=== PATIENT | female | born 1940 | race African-American/Black ===

== ENCOUNTER 2018-06-05 15:02 | Emergency (ER) | payer OTHER ==
[~2018-06-05] VITALS: Ht 167.6 cm; Wt 95.3 kg
[2018-06-05] MEDS ORDERED: NOVOLOG100 UNIT/1 (15:23)
[2018-06-05] MEDS ORDERED: LANTUS SOL100 UNIT/1 (15:23)
[2018-06-05] MEDS ORDERED: METOPROLOL ER-1 EAC1 (15:23)
[2018-06-05] MEDS ORDERED: AVAPRO75 MG (15:24)
[2018-06-05] MEDS ORDERED: NORVASC2.5 M1 (15:24)
[2018-06-05] MEDS ORDERED: MEDROLPACK PO (18:44)
[2018-06-05] MEDS ORDERED: FLOVENT HFA12 G1 IH (18:44)
[2018-06-05] MEDS ORDERED: VENTOLIN HFA18 GM IH (18:44)
== END 2018-06-05 18:54 | disposition home or self-care (01) ==
LOC: ER 15:02
DX: J45.998 Other asthma (principal); J11.1 Influenza due to unidentified influenza virus with other respiratory manifestations

== ENCOUNTER 2020-04-18 09:45 | Inpatient (IN) | payer OTHER ==
[~2020-04-18 09:45] MED LIST: AVAPRO75 MG; FLOVENT HFA12 G1 IH; LANTUS SOL100 UNIT/1; MEDROLPACK PO; METOPROLOL ER-1 EAC1; NORVASC2.5 M1; NOVOLOG100 UNIT/1; VENTOLIN HFA18 GM IH
[2020-04-18] MEDS ORDERED: [UNRECOGNIZED DRUG - OTHER] (12:43)
[2020-04-18] MEDS ORDERED: JANUMET XR 1001 EACH (12:43)
[2020-04-18] MEDS ORDERED: VITAMINA D (12:44)
[2020-04-18] MEDS ORDERED: ACIDO FOLICO (12:44)
[2020-04-18] MEDS ORDERED: AVAPRO75 MG (12:45)
[2020-04-18] MEDS ORDERED: ARICEPT5 MG (12:45)
[2020-04-18] MEDS ORDERED: NORVASC2.5 M1 (12:45)
[2020-04-27] MEDS ORDERED: VITAMIN D310 MC5 (08:23)
[2020-04-27] MEDS ORDERED: FOLIC ACID0.8 M1 (08:24)
[2020-04-27] MEDS ORDERED: CLOTRIMAZOLE-BE15 GM (08:25)
[2020-04-27] MEDS ORDERED: ALZ SR CAPLET1 EACH (08:26)
[2020-04-27] MEDS ORDERED: ANASTROZOLE1 MG (08:26)
[2020-04-27] MEDS ORDERED: ALENDRONATE SOD70 MG (08:26)
[2020-04-27] MEDS ORDERED: FLOVENT HFA12 G1 (08:27)
== END 2020-08-09 13:16 | disposition expired | DRG 329 ==
LOC: SURH 04-26 07:00 → O/R 04-26 08:19 → ICU 04-26 08:19 → SURG 04-26 08:19 → SURH 04-26 08:19 → SURG 04-26 21:34 → ICU 05-23 11:52 → SURG 06-05 17:41 → SURH 06-08 15:27 → ICU 07-17 20:43
PROVIDERS: ADMIT Surgery; ATTEND Surgery
PROC: 07BC4ZX Excision of Pelvis Lymphatic, Percutaneous Endoscopic Approach, Diagnostic (ICD-10-PCS; 2020-04-26)
PROC: 4A033R1 Measurement of Arterial Saturation, Peripheral, Percutaneous Approach (ICD-10-PCS; 2020-04-26)
PROC: 4A12X4Z Monitoring of Cardiac Electrical Activity, External Approach (ICD-10-PCS; 2020-04-26)
PROC: 0DTF4ZZ Resection of Right Large Intestine, Percutaneous Endoscopic Approach (ICD-10-PCS; principal; 2020-04-26 07:00)
PROC: 3E0F7GC Introduction of Other Therapeutic Substance into Respiratory Tract, Via Natural or Artificial Opening (ICD-10-PCS; 2020-04-27)
PROC: CB2YYZZ Tomographic (Tomo) Nuclear Medicine Imaging of Respiratory System using Other Radionuclide (ICD-10-PCS; 2020-04-28)
PROC: 3E0436Z Introduction of Nutritional Substance into Central Vein, Percutaneous Approach (ICD-10-PCS; 2020-04-29)
PROC: 05H433Z Insertion of Infusion Device into Left Innominate Vein, Percutaneous Approach (ICD-10-PCS; 2020-04-29)
PROC: 5A1955Z Respiratory Ventilation, Greater than 96 Consecutive Hours (ICD-10-PCS; 2020-04-30)
PROC: B24BZZZ Ultrasonography of Heart with Aorta (ICD-10-PCS; 2020-05-02)
PROC: 30233N1 Transfusion of Nonautologous Red Blood Cells into Peripheral Vein, Percutaneous Approach (ICD-10-PCS; 2020-05-20)
PROC: 0BH17EZ Insertion of Endotracheal Airway into Trachea, Via Natural or Artificial Opening (ICD-10-PCS; 2020-05-22)
PROC: 0BH17EZ Insertion of Endotracheal Airway into Trachea, Via Natural or Artificial Opening (ICD-10-PCS; 2020-05-22)
PROC: 3E0F7SF Introduction of Other Gas into Respiratory Tract, Via Natural or Artificial Opening (ICD-10-PCS; 2020-06-04)
PROC: 0JB70ZZ Excision of Back Subcutaneous Tissue and Fascia, Open Approach (ICD-10-PCS; 2020-06-08)
PROC: 0BH17EZ Insertion of Endotracheal Airway into Trachea, Via Natural or Artificial Opening (ICD-10-PCS; 2020-07-05)
PROC: 5A1955Z Respiratory Ventilation, Greater than 96 Consecutive Hours (ICD-10-PCS; 2020-07-05)
DX: D12.2 Benign neoplasm of ascending colon (principal); J96.01 Acute respiratory failure with hypoxia; L89.153 Pressure ulcer of sacral region, stage 3; L89.154 Pressure ulcer of sacral region, stage 4; J15.0 Pneumonia due to Klebsiella pneumoniae; J15.211 Pneumonia due to Methicillin susceptible Staphylococcus aureus; J69.0 Pneumonitis due to inhalation of food and vomit; A41.9 Sepsis, unspecified organism; R65.21 Severe sepsis with septic shock; E87.2 Acidosis; J98.11 Atelectasis; N17.8 Other acute kidney failure; M62.82 Rhabdomyolysis; E87.1 Hypo-osmolality and hyponatremia; K91.31 Postprocedural partial intestinal obstruction; J45.21 Mild intermittent asthma with (acute) exacerbation; B37.0 Candidal stomatitis; E87.0 Hyperosmolality and hypernatremia; B37.49 Other urogenital candidiasis; I44.2 Atrioventricular block, complete; G93.1 Anoxic brain damage, not elsewhere classified; F01.51 Vascular dementia, unspecified severity, with behavioral disturbance; G40.89 Other seizures; R59.0 Localized enlarged lymph nodes; I13.10 Hypertensive heart and chronic kidney disease without heart failure, with stage 1 through stage 4 chronic kidney disease, or unspecified chronic kidney disease; E11.22 Type 2 diabetes mellitus with diabetic chronic kidney disease; N18.2 Chronic kidney disease, stage 2 (mild); E66.8 Other obesity; E86.9 Volume depletion, unspecified; E11.65 Type 2 diabetes mellitus with hyperglycemia; Z79.4 Long term (current) use of insulin; Z85.3 Personal history of malignant neoplasm of breast; Z08 Encounter for follow-up examination after completed treatment for malignant neoplasm; Y83.8 Other surgical procedures as the cause of abnormal reaction of the patient, or of later complication, without mention of misadventure at the time of the procedure; E87.6 Hypokalemia; R13.11 Dysphagia, oral phase; F43.21 Adjustment disorder with depressed mood; B96.0 Mycoplasma pneumoniae [M. pneumoniae] as the cause of diseases classified elsewhere; D69.6 Thrombocytopenia, unspecified; I48.0 Paroxysmal atrial fibrillation; Z66 Do not resuscitate; Z68.32 Body mass index [BMI] 32.0-32.9, adult